=== PATIENT | male | born 1945 | race Caucasian/White ===

== ENCOUNTER → 2020-05-11 | Outpatient (CLI) | payer OTHER | LOC: SJCVC 14:20 | PROVIDERS: ATTEND Internal Medicine Cardiovascular Disease | DX: I45.10 Unspecified right bundle-branch block (principal); R94.31 Abnormal electrocardiogram [ECG] [EKG]; I25.10 Atherosclerotic heart disease of native coronary artery without angina pectoris; I10 Essential (primary) hypertension; I25.5 Ischemic cardiomyopathy; E78.1 Pure hyperglyceridemia; E78.00 Pure hypercholesterolemia, unspecified; I73.9 Peripheral vascular disease, unspecified; Z95.828 Presence of other vascular implants and grafts; I25.2 Old myocardial infarction; Z79.899 Other long term (current) drug therapy; Z82.49 Family history of ischemic heart disease and other diseases of the circulatory system ==

== ENCOUNTER → 2020-05-29 | Outpatient (CLI) | payer OTHER ==
[~2020-05-29] MED LIST: Q-SORB CO Q-10200 MG PO; REPATHA SU140 MG/1 M SUBQ; TOPROL XL25 MG PO; VITAMIN B COMP1 EACH PO; VITAMIN D350 MCG PO; VITAMIN K100 MCG PO
== END ==
LOC: SJCVCIMAG 08:23
PROVIDERS: ATTEND Internal Medicine Cardiovascular Disease
DX: I45.10 Unspecified right bundle-branch block (principal); I25.10 Atherosclerotic heart disease of native coronary artery without angina pectoris; I25.5 Ischemic cardiomyopathy; I73.9 Peripheral vascular disease, unspecified; I25.2 Old myocardial infarction; Z95.828 Presence of other vascular implants and grafts

== ENCOUNTER 2020-06-09 09:58 | Observation (INO) | payer OTHER ==
[~2020-06-09] VITALS: Ht 170.2 cm; Wt 70.3 kg
[~2020-06-09 09:58] MED LIST changes: -Q-SORB CO Q-10200 MG PO; -VITAMIN B COMP1 EACH PO; -VITAMIN D350 MCG PO; -VITAMIN K100 MCG PO
[2020-06-09 10:26] VITALS: BP 141/51
[2020-06-09] MEDS ORDERED: VITAMIN K100 MCG PO (10:54)
[2020-06-09] MEDS ORDERED: VITAMIN D350 MCG PO (10:55)
[2020-06-09] MEDS ORDERED: Q-SORB CO Q-10200 MG PO (10:56)
[2020-06-09] MEDS ORDERED: VITAMIN B COMP1 EACH PO (10:57)
[2020-06-09 11:01] LABS: HEMATOCRIT 38.9 % (42.0-52.0); HEMOGLOBIN 13.3 gm/dL (14.0-18.0); MCH 33.6 pg (26.0-34.0); MCHC 34.3 g/dL (28.0-37.0); MCV 97.9 fL (80.0-100.0); RBC 3.97 mil/uL (4.50-6.00); RDW 13.7 % (10.5-14.5); WBC 5.1 thou/uL (4.0-11.0)
[2020-06-09 11:03] LABS: CREATININE 0.8 mg/dL (0.7-1.3); POTASSIUM 4.3 mmol/L (3.5-5.1)
--- NOTE | 2020-06-09 14:00 | EKG ---
[facility] [place] [address] ELECTROCARDIOGRAM REPORT Name: QUINCY LYON Quintin Room #: [facility]#: [id number] Admission: 06/09/20 Attend Phys: Augusto Rockwell MD, Discharge: Date of : 43 Report #: [id number] THIS REPORT FOR: cc: NO FAMILY PHYSICIAN or PCP NO FAMILY PHYSICIAN or PCP Troy Chu MD [facility] THIS REPORT FOR: //name// [facility] Test Date: 2020-06-09 Test Time: 10:47:15 Pat Name: QUINCY LYON Department: Room: Gender: Resource Specialist: [facility] : 1945 Requested By: Augusto Rockwell Order Number: [id number] MD: Troy Chu Measurements Intervals Sidney Rate: 62 P: 31 NV: 194 QRS: -17 QRSD: 137 T: 23 QT: 435 QTc: 442 Interpretive Statements Sinus rhythm Ventricular premature complex Right bundle branch block Anteroseptal infarct, old No previous ECG available for comparison Electronically Signed On 06-09-2020 14:00:36 CDT by Troy Chu [email or web address] <ELECTRONICALLY SIGNED> By: Troy Chu MD, FACC 06/09/20 1400 1047 1047 Troy Chu MD, [facility] /EPI
--- NOTE | 2020-06-10 17:56 | CATHLAB ---
[facility] [place] [address] INVASIVE PROCEDURE REPORT Name: QUINCY LYON Room #: 213-P [facility] Oscar MInesRInes#: [id number] Admission: 06/09/20 Attend Phys: Augusto Rockwell MD, Discharge: 06/09/20 Date of : 43 Report #: [id number] THIS REPORT FOR: cc: NO FAMILY PHYSICIAN or PCP NO FAMILY PHYSICIAN or PCP Augusto Rockwell MD [facility] ~ APPROVED REPORT Study performed: 06/09/2020 11:50:43 Patient Details The patient is a 74 year-old male Event Personnel Augusto Rockwell Hotel Operation Manager, Oseas Mayes RN RN, Nani Last RTR, KELVIN Scrub, Edith Borjas RTR Scrub, Guerrero Horowitz RTR Monitor, Yaya Simon RTR Monitor Procedures Performed Art Access - L femoral artery* Left Heart Cath w/or w/o Coronaries [id number] [facility] [address] Initial Mod Sed Same Phys/QHP Gr5y 479780 64100 Mod Sed Same Phys/QHP Ea 596387 Aortogram Abdominal Peripheral Angio 985551 Hemostasis w/ Mynx Indication Chest pain Procedure Narrative The Right Groin^ was infiltrated with 1% Lidocaine subcutaneous anesthesia. A SHEATH BRITE-TIP 6F X 23CM ([id number]) sheath was inserted into the RFA^. Coronary angiography was performed using coronary diagnostic catheters. The right coronary system was accessed and visualized with a JR4 catheter. The left coronary system was accessed and visualized with a JL4 catheter. The left ventricle was accessed and visualized with a PIGTAIL catheter. An aortogram of the abdominal aorta was performed. Closure device was deployed with a 6 Fr 6/7FR MYNX. The patient tolerated the procedure well and there were no complications associated with the procedure. There was no hematoma. Intraoperative Conscious Sedation Sedation start time: 1305 Case end Time: 1345 Fentanyl 100 mcg Versed 2 mg [facility] [address] [place] [address] INVASIVE PROCEDURE REPORT Name: SONALIQUINCY Quintin Room #: 213-P [facility] IN ..#: [id number] Admission: 06/09/20 Attend Phys: Augusto Rockwell, Discharge: 06/09/20 Date of : 43 Report #: [id number] Fluoro Time: 4.58 minutes Dose: DAP 4439.00 cGycm2 449 mGy Contrast Type and Amount: Omnipaque 125 ml Hemodynamics The aortic pressure is 123/75 mmHg with a mean of 95 mmHg. The left ventricular pressure is 126/12 mmHg with a mean of mmHg. The left ventricular end diastolic pressure is 22 mmHg. Conclusion #1. 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 #2 LAD with a proximal stent previously placed mild in-stent restenosis proximal calcification mild diffuse irregularities extends around the apex. #3 circumflex OM first OM is moderately diseased as is the proximal circumflex. Slow flow in the distal OM system essentially subtotaled relatively small caliber but to be less than a 2.0 vessel. We will continue to treat this medically. High rising first OM is moderate in distribution and has an ostial lesion of 50 to 60% #4 normal left jugular size with anterior apical hypokinesis EF 45 to 50% range. #5 abdominal aorta is mildly ectatic and calcified no clear evidence for aneurysm or stenosis. #6 dominant right coronary which is eccentric and ectatic. Proximal lesion of 70 to 75% extremely tortuous and calcified mid vessel lesion of 70% then giving rise to a stent which is patent and diffuse disease in the dominant PDA TANYA. Calcification and tortuosity would make this technically difficult opt for continued aggressive medical therapy Recommendations and plan: Continue aggressive risk factor modification. Moderate disease as described above we will continue to treat aggressively no current indication for intervention. We will follow the progression of the right coronary artery closely. <ELECTRONICALLY SIGNED> By: Augusto Rockwell MD, FACC 06/10/201755 55 55 Augusto Rockwell MD, FACC /INF
== END 2020-06-09 17:10 | disposition home or self-care (01) ==
LOC: CATH 09:58 → 2N 15:19 → CATH 06-10 14:16
PROVIDERS: ADMIT Internal Medicine Cardiovascular Disease; ATTEND Internal Medicine Cardiovascular Disease
DX: R07.89 Other chest pain (principal)

== ENCOUNTER → 2021-01-18 | Outpatient (CLI) | payer OTHER ==
[~2021-01-18] MED LIST changes: +Q-SORB CO Q-10200 MG PO; +VITAMIN B COMP1 EACH PO; +VITAMIN D350 MCG PO; +VITAMIN K100 MCG PO
== END ==
LOC: SJCVC 15:20
PROVIDERS: ATTEND Internal Medicine Cardiovascular Disease
DX: R94.31 Abnormal electrocardiogram [ECG] [EKG] (principal); I45.10 Unspecified right bundle-branch block; I25.10 Atherosclerotic heart disease of native coronary artery without angina pectoris; I10 Essential (primary) hypertension; E78.00 Pure hypercholesterolemia, unspecified; I25.5 Ischemic cardiomyopathy; I77.1 Stricture of artery; I25.2 Old myocardial infarction; Z98.890 Other specified postprocedural states; Z88.0 Allergy status to penicillin; Z88.8 Allergy status to other drugs, medicaments and biological substances; Z79.82 Long term (current) use of aspirin; Z79.899 Other long term (current) drug therapy; Z82.49 Family history of ischemic heart disease and other diseases of the circulatory system

== ENCOUNTER → 2021-05-26 | Outpatient (CLI) | payer OTHER | LOC: SJCVCIMAG 09:08 | PROVIDERS: ATTEND Internal Medicine Cardiovascular Disease | DX: I49.1 Atrial premature depolarization (principal); R00.0 Tachycardia, unspecified; I25.10 Atherosclerotic heart disease of native coronary artery without angina pectoris; I25.5 Ischemic cardiomyopathy; E78.00 Pure hypercholesterolemia, unspecified; I10 Essential (primary) hypertension; I45.10 Unspecified right bundle-branch block; I77.1 Stricture of artery; E78.5 Hyperlipidemia, unspecified; Z95.828 Presence of other vascular implants and grafts; Z79.899 Other long term (current) drug therapy; Z72.89 Other problems related to lifestyle; Z88.2 Allergy status to sulfonamides; Z88.0 Allergy status to penicillin ==